=== PATIENT | female | born 1980 | race Caucasian/White ===

== ENCOUNTER 2018-05-02 21:01 | Inpatient (IN) ==
[2018-05-02] MEDS ORDERED: LR 1000 ML IV 1,000 ML IV ONE (21:28)
[2018-05-02] MEDS ORDERED: XYLOCAINE 1 % (PLAIN) ONE (21:29)
[2018-05-02] MEDS ORDERED: ADRENALINE CHL INJ ONE (21:29)
[2018-05-02] MEDS ORDERED: PITOCIN ONE (21:29)
[2018-05-02] MEDS ORDERED: NAROPIN EPIDURAL 0.2% + FENTANYL 90MCG 60 ML EPI ONE (21:29)
[2018-05-02] MEDS ORDERED: D5LR 1L W PITOCIN 10 UNITS/L 10 UNITS/1,000 ML BAG IV ONE (21:29)
[2018-05-02] MEDS ORDERED: FENTANYL INJ 100 mcg ONE (21:30)
[2018-05-02] MEDS ORDERED: D5 1/2 NS 1L W PITOCIN 20 UNITS/L 20 UNITS/1,000 ML BAG IV ONE (21:30)
[2018-05-02 21:33] VITALS: BMI 29.3
[2018-05-02 21:35] LABS: BILIRUBIN,URINE NEGATIVE (NEGATIVE); BLOOD/HEMOGLOBIN,URINE 5+ (NEGATIVE); GLUCOSE, URINE 1+ (NEGATIVE); KETONES,URINE NEGATIVE (NEGATIVE); LEUKOCYTE ESTERASE ,URINE 1+ (NEGATIVE); NITRITES,URINE NEGATIVE (NEGATIVE); PH,URINE 6.5 (5.0 - 8.0); PROTEIN,URINE 2+ (NEGATIVE); UROBILINOGEN,URINE NORMAL (NORMAL)
[2018-05-02 21:36] LABS: AMNISURE ROM TEST THERE IS A RUPTURE (NO RUPTURE)
[2018-05-02] MEDS ORDERED: PITOCIN IVP ONE (21:49)
[2018-05-02] MEDS ORDERED: D5LR 1L W PITOCIN 10 UNITS/L 10 UNITS/1,000 ML BAG IV PRN (21:49)
[2018-05-02] MEDS ORDERED: MORPHINE SULFATE INJ 2 MG INJ IVP PRN (21:49)
[2018-05-02] MEDS ORDERED: NUBAIN INJ 200 MG VIAL MULTIDOSE IVP PRN (21:49)
[2018-05-02] MEDS ORDERED: REGLAN INJ 10 MG VIAL IVP PRN (21:49)
[2018-05-02] MEDS ORDERED: PHENERGAN INJ 25 MG IV PRN (21:49)
[2018-05-02] MEDS ORDERED: DILAUDID INJ IVP PRN (21:49)
[2018-05-02 21:52] LABS: APPEARANCE,URINE SLIGHTLY HAZY (CLEAR); COLOR,URINE YELLOW (YELLOW)
[2018-05-02 21:53] LABS: BACTERIA,URINE TRACE /HPF (NEGATIVE); MUCUS,URINE FEW /HPF (NEGATIVE); SQUAMOUS EPITHELIAL CELL,UR MODERATE /HPF (NEGATIVE)
[2018-05-02 22:14] LABS: BASOPHILS % (AUTO) 0.6 % (0.2-1.0); EOSINOPHILS # (AUTO) 0.1 x10^3/uL (0.0-0.2); EOSINOPHILS % (AUTO) 1.1 % (0.9-2.9); HEMATOCRIT 32.7 % (36.0-47.0); HEMOGLOBIN 11.5 g/dL (12.0-16.0); LYMPHOCYTES # (AUTO) 1.3 X10^3/uL (1.3-2.9); LYMPHOCYTES % (AUTO) 21.4 % (21.0-51.0); MEAN CORPUSCULAR HGB CONC 35.3 g/dL (33.0-35.0); MEAN CORPUSCULAR VOLUME 90.6 fL (80.0-100.0); MEAN PLATELET VOLUME 9.4 fL (7.4-11.0); MONOCYTES # (AUTO) 0.4 x10^3/uL (0.3-0.8); NEUTROPHILS # (AUTO) 4.3 x10^3/uL (2.2-4.8); NEUTROPHILS % (AUTO) 69.9 % (42.0-75.0); PLATELET COUNT 214 X10^3/uL (150.0-450.0); RED BLOOD COUNT 3.61 X10^6/uL (3.5-5.4); RED CELL DISTRIBUTION WIDTH 14.4 % (11.6-16.5); WHITE BLOOD COUNT 6.2 X10^3/uL (3.6-10.0)
[2018-05-02 22:21] LABS: BLOOD UREA NITROGEN 8 mg/dL (7-18); CALCIUM 8.7 mg/dL (8.5-10.1); CARBON DIOXIDE 22.3 mmol/L (21-32); CHLORIDE 102 mmol/L (98-107); COR NA(FOR HYPERGLY) 136 mmol/L (136-145); CREATININE 0.64 mg/dL (0.55-1.02); SODIUM 136 mmol/L (136-145); eGFR NON BLACK RACES > 60 (>60)
[2018-05-03] MEDS ORDERED: MOTRIN TAB 800 MG PO PRN (00:37)
[2018-05-03] MEDS ORDERED: AMBIEN PO PRN (00:42)
[2018-05-03] MEDS ORDERED: ADACEL or BOOSTRIX TDaP VACCINE IM ONE ×2 (00:42→09:44)
[2018-05-03] MEDS ORDERED: DERMOPLAST SPRAY TOP PRN (00:42)
[2018-05-03] MEDS ORDERED: MILK OF MAGNESIA PO PRN (00:42)
[2018-05-03 06:08] LABS: HEMATOCRIT 33.5 % (36.0-47.0); HEMOGLOBIN 11.6 g/dL (12.0-16.0)
[2018-05-03] MEDS: PRENATAL PLUS PO SCH (09:18)
[2018-05-03] MEDS: ZANTAC PO SCH ×2 (09:18→22:59)
[2018-05-03] MEDS: D5 1/2 NS 1000 ML 1,000 ML with PITOCIN 20 UNITS IV SCH ×4 (14:36→17:09)
[2018-05-04] MEDS: D5 1/2 NS 1000 ML 1,000 ML with PITOCIN 20 UNITS IV SCH ×4 (03:19→09:20)
[2018-05-04 07:42] VITALS: BP 148/87
[2018-05-04] MEDS: ZANTAC PO SCH (09:08)
[2018-05-04] MEDS: PRENATAL PLUS PO SCH (09:08)
== END 2018-05-04 11:00 | disposition home or self-care (01) | DRG 807 ==
LOC: ER 21:03 → LD 21:23 → MED/SURG 05-03 00:46
PROVIDERS: ADMIT Obstetrics & Gynecology Obstetrics; ATTEND Obstetrics & Gynecology Obstetrics
DX: O26.893 Other specified pregnancy related conditions, third trimester; Z37.0 Single live birth; O09.33 Supervision of pregnancy with insufficient antenatal care, third trimester; Z3A.37 37 weeks gestation of pregnancy; Z23 Encounter for immunization
CPT/HCPCS: 36415; 59409; 80048; 81001; 84112; 85014; 85018; 85025; 86592; 86850; 86900; 86901; 90715; 96365; 99284; A4216; A4222; S0197; J0171; J2590; J3010; J7120; S5010